=== PATIENT | female | born 1955 | race Two or more races ===

== ENCOUNTER 2022-06-24 13:39 | Outpatient (REF) | payer MEDICAID, SELFPAY ==
--- NOTE | ~2022-06-24 | MM_ITS ---
EXAMINATION: MM SCREENING DIGITAL BREAST TOMOSYNTHESIS, LEFT CLINICAL INFORMATION: Screening. Asymptomatic. Status post right mastectomy. COMPARISON: Mammography: February 06, 2020 and studies dating back to June 23, 2017 TECHNIQUE: Digital breast tomosynthesis is performed in both the craniocaudal and mediolateral oblique views along with computer-aided detection (CAD). Synthesized 2D images are generated from the tomosynthesis. FINDINGS: There are scattered areas of fibroglandular density (ACR BI-RADS breast composition Category b). There are no significant masses, abnormal calcifications, or other abnormalities. MM/MM tomosynthesis screening LT IMPRESSION: No significant changes ASSESSMENT: BI-RADS 1: Negative RECOMMENDATION: Routine annual mammography screening. This patient's information was entered into a reminder system with a target due date for their next mammogram.
== END 2022-06-24 13:40 | disposition home or self-care (01) ==
LOC: HO.MAMMO 13:39
PROVIDERS: Visit Provider Internal Medicine Medical Oncology
DX: Z12.31 Encounter for screening mammogram for malignant neoplasm of breast (principal)
CPT/HCPCS: 77063; 77067

== ENCOUNTER → 2023-07-09 14:00 | Outpatient (BNV) | payer MEDICAID, SELFPAY | PROVIDERS: Visit Provider Radiology Diagnostic Radiology | DX: Z12.31 Encounter for screening mammogram for malignant neoplasm of breast (principal) | CPT/HCPCS: 77063; 77067 ==

== ENCOUNTER 2023-07-09 14:07 | Outpatient (REF) | payer MEDICAID, SELFPAY ==
--- NOTE | ~2023-07-09 | MM_ITS ---
EXAMINATION: MM SCREENING DIGITAL BREAST TOMOSYNTHESIS, BILATERAL CLINICAL INFORMATION: Screening. Asymptomatic. The patient is status post left mastectomy. COMPARISON: Mammography: This study is compared with prior exams dating back to 2022. TECHNIQUE: Digital breast tomosynthesis is performed in both the craniocaudal and mediolateral oblique views along with computer-aided detection (CAD). Synthesized 2D images are generated from the tomosynthesis. FINDINGS: There are scattered areas of fibroglandular density (ACR BI-RADS breast composition Category b). There are no significant masses, abnormal calcifications, or other abnormalities. MM/MM tomosynthesis screening LT IMPRESSION: No mammographic evidence of malignancy. ASSESSMENT: BI-RADS BI-RADS 1 - Negative RECOMMENDATION: Routine annual mammography screening. 1 year F/U This examination should not preclude the clinical evaluation of a suspicious palpable abnormality. This patient's information was entered into a reminder system with a target due date for their next mammogram.
== END 2023-07-09 14:08 | disposition home or self-care (01) ==
LOC: HO.MAMMO 14:07
PROVIDERS: Visit Provider Internal Medicine Medical Oncology
DX: Z12.31 Encounter for screening mammogram for malignant neoplasm of breast (principal)
CPT/HCPCS: 77063; 77067

== ENCOUNTER 2024-07-14 14:00 | Outpatient (REF) | payer MEDICARE, MEDICAID, SELFPAY ==
--- NOTE | ~2024-07-14 | MM_ITS ---
EXAMINATION: MM SCREENING DIGITAL BREAST TOMOSYNTHESIS, LEFT CLINICAL INFORMATION: Screening. Asymptomatic. Patient states she has a left breast itchiness. COMPARISON: Mammography: This study is compared with prior exams dating back to TECHNIQUE: Digital breast tomosynthesis is performed in both the craniocaudal and mediolateral oblique views along with computer-aided detection (CAD). Synthesized 2D images are generated from the tomosynthesis. FINDINGS: There are scattered areas of fibroglandular density (ACR BI-RADS breast composition Category b). There are no significant masses, abnormal calcifications, or other abnormalities. MM/MM tomosynthesis screening LT IMPRESSION: No mammographic evidence of malignancy. ASSESSMENT: BI-RADS BI-RADS 1 - Negative RECOMMENDATION: Routine annual mammography screening. Patient states she has left breast/nipple itchiness. Recommend clinical evaluation and if there is a focal symptom or if deemed clinically significant a diagnostic workup can be ordered and performed. 1 year F/U This examination should not preclude the clinical evaluation of a suspicious palpable abnormality. This patient's information was entered into a reminder system with a target due date for their next mammogram. Electronically signed by: Yumiko Al DO 07/14/2024 03:04 PM RAND
--- OUTSIDE RECORDS SUMMARY | 2024-07-14 16:13 | XMS_ITS | Encounter Summary ---
Author Organization [facility] Address [address] [address] Care Team Providers Care Banking And Finance Instructor Name Role Phone Ev Stanton PA-C Primary Care Provider [phone] Reason for Visit * Reason Comments Behavioral Health Assessment Encounter Details Date Type Department Care Team ([facility] st Contact Info) Description 07/13/2024 10:00 AM EST / Vis[facility] [address] [place] [address] Enrike Gamez LCSW [address] [place] [address] Social History Tobacco Use Types Packs/Day Years Used Date Smoking Tobacco: Every Day Cigarettes Smokeless Tobacco: Never Alcohol Use Standard Drinks/Week Comments Not Currently 0 (1 standard drink = 0.6 oz pur e alcohol) Social Connections Answer Date Recorded Connectedness 0 01/21/2024 Financial Resource Strain Answer Date R ecorded Financial Resource Strain 1 2023 Stress Answer Date Recorded Stress 1 12/24/2023 Physical Activity Answer Date Recorded Physical Activity 0 06/06/2022 Food Insecurity Answer Date Recorded Food 1 12/24/2023 Transportation Needs Answer Date Record ed Transportation 1 12/24/2023 Housing Stability Answer Date Recorded Housing 1 12/24/2023 Safety and Environment Answer Date Jaylon rded Safety 0 06/06/2022 Utilities Answer Date Recorded Utilities 1 12/24/2023 Employment Answer Date Recorded Stress 0 12/24/2023 Comments No Sex and Gender Information Value Date Recorded Sex Assigned at Female 06/07/2022 7:59 PM PST Legal Sex Female 7:12 AM PST Gender Identity Female 06/07/2022 7:59 PM PST Sexual Orientation Straight 06/07/2022 7: 59 PM PST documented as of this encounter Plan of Treatment Upcoming Encounters Date Type Department Care Team (Late st Contact Info) Description 08/02/2024 3:45 PM EDT / Vis[facility] [address] [place] [id number] Enrike Gamez LCSW [address] [place] [address] documented as of this encounter Visit Diagnoses Not on filedocumented in this encounter Additional Health Concerns Assessment Noted Time PHQ-9 Depression Total Score: 2 12/24/19 24 10:02 AM PDT documented as of this encounter Care Teams Banking And Finance Instructor Relationship Specialty Start Date End Date Ev Stanton PA-C [address] [place] [address] PCP - General Internal Medicine 05/26/22 documented as of this encounter
--- OUTSIDE RECORDS SUMMARY | 2024-07-14 16:13 | XMS_ITS | Clinical Summary ---
Author Organization [facility] Address [address] [place] [address] Care Team Providers Care Egg Factory Worker Name Role Phone Jaleesa Castellanos MD Primary Care Provider Allergies Active Allergy Reactions Criticality Noted Date Comments Aspirin 11/29/2017 Medications VITAMIN D2 50,000 unit capsule 5,000 Units. 0 8 Active bisoprolol-hydr ochlorothiazide (ZIAC) 5-6.25 mg per tablet every 12 hours. Active meclizine (ANTIVERT) 25 mg tablet 9 Active cholecalciferol , vitamin D3, 125 mcg (5,000 unit) capsule 0 Active albuterol HFA 90 mcg/actuation inhaler Inhale 2 puffs every 6 (six) hours as needed. Active budesonide-form oteroL (SYMBICORT) 160-4.5 mcg/actuation inhaler Inhale 2 puffs 2 (two) times a day. Rinse mouth with water after use to reduce aftertaste and incidence of candidiasis. Do not swallow. Prime before first use and when inhaler has not been used for >5 days. Do not remove canister from the actuator. Active calcium carbonate (TUMS) 200 mg calcium (500 mg) chewable tablet Take by mouth daily. Active PriLOSEC OTC 20 mg EC tabletIndicatio ns:Gastroesopha geal reflux disease TAKE 1 TABLET (20 MG TOTAL) BY MOUTH DAILY. TAKE 30 MINS BEFORE BREAKFAST DAILY 28 tablet 2 0 Active anastrozole (ARIMIDEX) 1 mg chemo tablet 1 Active acetaminophen (TYLENOL) 325 mg tablet Take 975 mg by mouth every 6 hours as needed. 1 Active bisoproloL-hydr ochlorothiazide (ZIAC) 5-6.25 mg per tablet Take 1 tablet by mouth daily. 0 Active Active Problems Problem Noted Date Diagnosed Date Abnormal ultrasound of liver 02/10/2020 History of adenomatous polyp of colon 02/10/2020 Positive YOVANY (antinuclear antibody) 12/09/2019 Assessment & Plan (12/09/2019 10:37 AM EDT): Has low titer positive YOVANY likely in the setting of positive thyroid antibodies. No clinical evidence of specific connective tissue disease at this time. -We will continue to monitor clinically. -Advised to call if develops new symptoms. Cervical radiculopathy 12/09/2019 Assessment & Plan (12/09/2019 10:41 AM EDT): Has a history of C-spine injury status post surgery. Has progressively worsening neck pain associated with neuropathic symptoms more on the left upper extremity. -Would get C-spine x-ray today. -Administered IM depot Medrol 120 mg in clinic today to upper right lateral buttock region. Patient tolerated the procedure without complications. -Tylenol as needed. Consider referral for physical therapy after reviewing C- spine x-ray. Hematuria 12/09/2019 Assessment & Plan (12/09/2019 10:42 AM EDT): Noted mild hematuria 8-10 RBCs on last UA in May 2019. No protein or white blood cells. -Repeat UA today. Hypertension 07/19/2019 Vitamin D deficiency 07/19/2019 Skin lesion 07/19/2019 Asthma, allergic, mild intermittent, uncomplicat ed 07/19/2019 Headache 07/19/2019 Thrombocytopenia 07/19/2019 Cellulitis 07/19/2019 Dizziness 07/19/2019 History of Helicobacter pylori infection 020 Overview (07/19/2019): Added automatically from request for surgery [id number] Epigastric pain determined by examination 2019 Overview (07/19/2019): Added automatically from request for surgery [id number] Gastroesophageal reflux disease 07/19/2019 Overview (07/19/2019): Added automatically from request for surgery [id number] Screening for colon cancer 07/19/2019 Overview (07/19/2019): Added automatically from request for surgery [id number] Family history of colon cancer in mother 020 Overview (07/19/2019): Added automatically from request for surgery [id number] Lumbosacral spondylosis without myelopathy 10/17 Stenosis of cervical spine region 03/28/2015 Family History Medical History Relation Comments Cancer Mother Colon cancer Mother Hypertension Mother Esophageal cancer Neg Hx Stomach cancer Neg Hx Relation Status Comments Father Mother Social History Tobacco Use Types Packs/Day Years Used Date Smoking Tobacco: Some Days Cigarettes Smokeless Tobacco: Never Alcohol Use Standard Drinks/Week Comments No 0 (1 standard drink = 0.6 oz pur e alcohol) Comments No Sex and Gender Information Value Date Recorded Sex Assigned at Not on file Legal Sex Female 10:05 AM EST Gender Identity Not on file Sexual Orientation Not on file Last Filed Vital Signs Vital Sign Reading Time Taken Comments Blood Pressure 109/76 06/11/2021 11:39 AM EST Pulse 70 06/11/2021 11:39 AM EST Temperature 36.4 ??C (97.6 ??F) 06/11/2021 11:[address] Respiratory Rate 16 06/11/2021 11:39 AM EST Oxygen Saturation 96% 01/18/2020 2:40 PM EDT Inhaled Oxygen Concentration - - Weight 75.5 kg (166 lb 8 oz) 06/11/2021 11:39 AM EST Height 157.5 cm (5' 2 ) 06/11/2021 11:39 AM EST Body Mass Index 30.45 06/11/2021 11:39 AM EST Plan of Treatment Health Maintenance Due Date Last Done Comments CT Colonography 1955 FIT-DNA (Cologuard) 1955 FIT 1955 FOBT 1955 Flex Sigmoidoscopy - 5y 1955 DTaP,Tdap,and Td Vaccines (1 - Tdap) 1974 Zoster Vaccines (1 of 2) 2006 Pneumococcal Vaccine, 65+ Years (1 of 1 - PCV) 2021 Breast Cancer Screening 02/17/2023 02/18/20 21, 04/16/2020 COVID-19 Vaccine (1 - 2023-2 5 season) 2024 Influenza Vaccine (#1) 2024 Colonoscopy 01/17/2030 01/18/2020, 01/18/2020 Colorectal Cancer Screening 01/17/2030 HIV Screening Completed 06/08/2019 Bone Density Screening Completed 08/15/2020 HPV Vaccines Aged Out No longer eligi ble based on patient's age to complete this topic Hepatitis A Vaccines Aged Out No long er eligible based on patient's age to complete this topic Meningococcal Vaccine Aged Out No italo zee eligible based on patient's age to complete this topic Procedures Procedure Name Priority Date/Time Associated Diagnosis Comments COLONOSCOPY Routine 01/18/2020 1:27 PM EDT History of Helicobacter pylori infection HIV COMBO ANTIGEN/ANTIBODY Routine 06/08/2019 2:54 PM EST Polyarthralgia from Last 3 Months or Most Recently Relevant to Health Maintenance Results * COLONOSCOPY (01/18/2020 1:27 PM EDT) 01/18/2020 1:27 PM EDT Narrative [facility] - 01/18/2020 2:06 PM EDT Patient Name: Vijay Robles Date of : 1955 Procedure Date: 01/18/2020 1:27 PM Procedure: ? Colonoscopy Endoscopist: ? Heather Elias MD (Doctor) Referring MD: ?Nina Pulido (Referring MD) Indications: ? Screening for colorectal malignant neoplasm Attending Participation: I personally performed the entire procedure. Procedure: ? Pre-Anesthesia Assessment: ? - Prior to the procedure, a History and ? Physical was performed, and patient ? medications, allergies and sensitivities ? were reviewed. The patient's tolerance of ? previous anesthesia was reviewed. ? - The risks and benefits of the procedure ? and the sedation options and risks were ? discussed with the patient. All questions ? were answered and informed consent was ? obtained. ? - Patient identification and proposed ? procedure were verified prior to the ? procedure by the physician, the nurse, the ? carding utility tender and the pv design and installation technician. The ? procedure was verified in the pre-procedure ? area in the procedure room in the endoscopy ? suite. ? -Endoscopic procedures are exempt from a ? surgical site marking.Preparation: EKG, ? pulse, pulse oximetry, and blood pressure ? were monitored throughout the procedure. ? Capnography was monitored throughout ? procedure. The patient was kept NPO for ? four hours prior to the procedure. An ? intravenous line was inserted. The ? [id number] scope was introduced ? through the anus and advanced to the cecum, ? identified by appendiceal orifice and ? ileocecal valve. The colonoscopy was ? performed without difficulty. The patient ? tolerated the procedure well. The quality ? of the bowel preparation was adequate. Medicines: ? Propofol per Anesthesia Findings: ? Hemorrhoids were found on perianal exam. ? Diverticula were found in the colon. ? Three sessile polyps were found in the transverse colon. The ? polyps were 4 to 8 mm in size. These polyps were removed with a ? cold snare. Resection and retrieval were complete. ? The terminal ileum appeared normal. Estimated Blood Loss: ?Estimated blood loss: none. Unplanned Events: ?No immediate complications. Summary: ? - Hemorrhoids found on perianal exam. ? - Diverticulosis. ? - Three 4 to 8 mm polyps in the transverse ? colon, removed with a cold snare. Resected ? and retrieved. ? - The examined portion of the ileum was ? normal. Recommendation: ?- Written discharge instructions were ? provided to the patient. ? - The signs and symptoms of potential ? delayed complications were discussed with ? the patient. ? - Resume previous diet. ? - Await pathology results. ? - Repeat colonoscopy date to be determined ? after pending pathology results are ? reviewed for surveillance. ? - Return to referring physician. ? - Continue present medications. Procedure Code(s): ? --- Professional --- ? 02807, Colonoscopy, flexible; with removal ? of tumor(s), polyp(s), or other lesion(s) ? by snare technique Diagnosis Code(s): ? --- Professional --- ? Z12.11, Encounter for screening for ? malignant neoplasm of colon ? K64.9, Unspecified hemorrhoids ? D12.3, Benign neoplasm of transverse colon ? (hepatic flexure or splenic flexure) ? K57.30, Diverticulosis of large intestine ? without perforation or abscess without ? bleeding CPT copyright 2018 [employer]. All rights reserved. The codes documented in this report are preliminary and upon home care companion review may be revised to meet current compliance requirements. MD Heather Murray MD 01/18/2020 2:06:09 PM Electronically Authenticated and Edited by: Heather Elias MD Number of Addenda: 0 ? [place] [address] Tel: [phone] ? [phone] Heather Elias MD GI PROCEDURE Final Result Performing Organization Address City/State/[facility] Co de Phone Number [facility] [address] [place] [address]. [place] [address], * HIV combo antigen/antibody (06/08/2019 2:54 PM EST) HIV Combo AB/AG Negative Negative 06/08/2019 6:15 PM EST [facility] Blood specimen (specimen) Venous blood specimen / Unknown Venipuncture / Unknown 06/08/2019 2:54 PM EST 06/08/2019 2:54 PM EST Narrative [facility] - 06/08/2019 6:15 PM EST This test is a 4th generation HIV Antigen-Antibody Combination assay, using a chemiluminescent microparticle immunoassay, for the simultaneous qualitative detection of human immuno- deficiency virus (HIV) p24 antigen and antibodies to HIV type 1 (HIV-1) and/or HIV type 2 (HIV-2) in human serum or plasma. The [employer] HIV Ag/Ab Combo assay is intended to be used as an aid in the diagnosis of HIV-1 and/or HIV-2 infection, including acute or primary HIV-1 infection. Initially-positive tests are repeated in duplicate. Repeat-positive tests will be confirmed for HIV by a HIV-1/HIV-2 rapid supplemental/ differentiation antibody assay. This testing algorithm is in line with the current CDC recommendations. Leonides Raza MD LAB BLOOD ORDERABL ES NO STAT Final Result [facility] [address] [place] [address], from Last 3 Months or Most Recently Relevant to Health Maintenance Insurance MEDICAID [place] D Advance Directives For more information, please contact: [phone] Documents on File Type Date Recorded Patient Stationary Fireman Expl anation Advance Directives 01/19/2020 8:43 AM Care Teams Egg Factory Worker Relationship Specialty Start Date End Date Jaleesa Castellanos MD PCP - General 09/06/17
--- OUTSIDE RECORDS SUMMARY | 2024-07-14 16:13 | XMS_ITS | Encounter Summary ---
Author Organization [facility] Address [address] [place] [address] Care Team Providers Care Fiber Locking Supervisor Name Role Phone RajeshTobin garciaa CNDontrell Primary Care Provider [phone] Annette Saini RN Unavailable [phone] Unknown Primary Care Provider [phone] Nina Pulido Primary Care Provider [phone] Danyelle Caldera RN Unavailable [phone] Encounter Details Date Type Department Care Team (Latest Contact Info) Description 04/20/2020 Lab Requisition [facility] [address] [place] [address] [address] [place] [address] Colin Serrano PA-C [address] [place] [id number] Encounter for laboratory testing for COVID-19 virus Social History Tobacco Use Types Packs/Day Years Used Date Smoking Tobacco: Every Day Alcohol Use Standard Drinks/Week Comments Not Currently 0 (1 standard drink = 0.6 oz pur e alcohol) Sex and Gender Information Value Date Recorded Sex Assigned at Female 10/05/2022 2:35 PM EDT Gender Identity Female 10/05/2022 2:35 PM EDT Sexual Orientation Heterosexual (straight) 10/05 2:35 PM EDT COVID-19 Exposure Response Date Recorded In the last month, have you been in contact with someone who was confirmed or suspected to have Coronavirus / COVID-19? No / Unsure 04/16/2020 12:25 PM EST documented as of this encounter Plan of Treatment Not on file documented as of this encounter Procedures Procedure Name Priority Date/Time Associated Diagnosis Comments (REPORT) SARS COV-2 RNA (COVID-19), QUAL Routine 04/20/2020 4:23 PM EST Encounter for laboratory testing for COVID-19 virus [ICD-10-CM] documented in this encounter Results * SARS CoV-2 RNA (COVID-19), Qual (04/20/2020 4:23 PM EST) [facility] SARS CoV 2 RNA, Qual NOT DETECTED NOT DETECTED 04/24/2020 1:00 PM EST [facility] Comment: A Not Detected (negative) test result for this test means that SARS-CoV-2 RNA was not present in the specimen above the limit of detection. A negative result does not rule out the possibility of COVID-19 and should not be used as the sole basis for treatment or patient management decisions. If COVID-19 is still suspected, based on exposure history together with other clinical findings, re-testing should be considered in consultation with public health authorities. Laboratory test results should always be considered in the context of clinical observations and epidemiological data in making a final diagnosis and patient management decisions. REFERENCE RANGE: ??NOT DETECTED This patient specimen was tested using an FDA EUA pooling method. Negative results from pooled testing should not be treated as definitive. ??If the patient's clinical signs and symptoms are inconsistent with a negative result or results are necessary for patient management, then the patient should be considered for individual testing. Specimens with low viral loads may not be detected in sample pools due to the decreased sensitivity of pooled testing. Please review the Fact Sheets and FDA authorized labeling available for health care providers and patients using the following websites: https://www.[employer]Jiffy.com/home/Covid-19/HCP/QuestLDTP/ fact-sheet https://www.[employer]y.SHOP.COM/home/Covid-19/Patients/QuestLDTP/ fact-sheet.html This test has been authorized by the FDA under an Emergency Use Authorization (EUA) for use by authorized laboratories. Due to the current public health emergency, [facility] is receiving a high volume of samples from a wide variety of swabs and media for COVID-19 testing. In order to serve patients during this public health crisis, samples from appropriate clinical sources are being tested. Negative test results derived from specimens received in non-commercially manufactured viral collection and transport media, or in media and sample collection kits not yet authorized by FDA for COVID-19 testing should be cautiously evaluated and the patient potentially subjected to extra precautions such as additional clinical monitoring, including collection of an additional specimen. Methodology: ??Nucleic Acid Amplification Test (NAAT) includes RT-PCR or TMA ?? Additional information about COVID-19 can be found at the [facility] website: www.Caktus/Covid19. Microbiology Nasopharyngeal swab / Unknown 04/20/2020 4:23 PM EST 04/20/2020 4:23 PM EST Narrative [facility] - 04/24/2020 1:00 PM EST Performing Organization Information: ?Site ID: [id number] ?Name: [employer] ?Address: [address] [place] [address],[place] [address] ?Director: BUNNY FOSTER MD [facility]formed at [facility] License number [id number] Colin Serrano PA-C BODY FLUIDS AND S TOOLS ORDERABLES Performing Organization Address City/State/[facility] Co de Phone Number [facility] documented in this encounter Visit Diagnoses Diagnosis Encounter for laboratory testing for COVID-19 virus documented in this encounter Care Teams Fiber Locking Supervisor Relationship Specialty Start Date End Date Ava Swan CNM [address] [place] [address] PCP - General Midwifery 02/20/20 06/03/20 Unknown Unknow Provider Address PCP - General 06/04/20 06/27/20 Nina Pulido PA [address] [place] [id number] PCP - General Adult Health - PA/APNP/SUPERVISOR WEBBING/KILN BURNER 06/28/20 Annette Saini RN [address] [place] [address] Oncology Nurse Navigator 02/27/20 02/14/21 Danyelle Caldera RN [address] [place] [address] Oncology Nurse Navigator 08/18/21 documented as of this encounter
--- OUTSIDE RECORDS SUMMARY | 2024-07-14 16:13 | XMS_ITS | Patient Health Record ---
Author Organization [employer] Address [address] [facility] [id number] [place] [address] Care Team Providers Care Press Service Reader Name Role Phone Nina Pulido Primary Care Provider [phone] ALLERGIES Allergen (clinical drug ingredient) Drug/Non Drug Allergy documented on EMR Reaction Allergy Type Onset Date Status aspirin Aspirin Unknown Drug Allergy Active REASON FOR REFERRAL No Information MEDICATIONS Medication SIG (Take, Route, Frequency, Duration) Notes Start Date End Date Status Peridex 0.12 % as directed Mouth/Th roat 2x daily for 21 days 04/03/2022 Active Ibuprofen 800 MG 1 tablet with food o r milk as needed Orally every 8 hrs for 7 days 10/08/2021 Not-Takin g Peridex 0.12 % as directed Mouth/Th roat twice a day for 21 days 10/28/2021 Not-Taki ng Amoxicillin 500 MG 1 capsule Orally arya ry 8 hrs for 10 days 07/24/2020 Not-Taking Diclofenac Sodium 1 % APPLY 3 GRAMS TO K NEE TWICE A DAY 17 for 17 Active [facility] Diclofenac Sodium 1 % DIRECTED EXTERNALLY 30 DAYS for 30 Not-Taking [facility] D3 125 MCG (5000 UT) TAKE 1 CAPSULE BY MOUTH EVERY DAY for 30 Active Acetaminophen 500 MG 1 tablet as needed Orally every 6 hrs for 7 days 10/03/2021 Not-Taking Albuterol Sulfate HFA 108 (90 Base) MCG/ACT INHALE 2 PUFFS BY MOUTH EVERY 6 HOURS NEEDED for 17 Not-Taking traMADol HCl 50 MG 1 tablet as needed, may cause drowsiness Orally every 6 hours as needed for 5 days 02/20/2022 Active Amoxicillin 500 MG 1 capsule Orally arya ry 8 hrs for 7 days 07/23/2021 Not-Taking Anastrozole 1 MG 1 tablet Orally Once a day Active Methocarbamol 750 MG 1 tablet Orally arya ry 4 hrs for 4 days 07/21/2021 Not-Taking Blood Pressure Monitor Automat miscellaneous as directed Externally 2 times a day for [address] days 07/05/2018 Active Hepatitis B Vac Recombinant 20 MCG/ML as directed Intramuscular once for 1 days Not-Taking Blood Pressure Kit - 1 externally daily for 999 days 05/12/2019 Active Amoxicillin 500 MG 1 tablet Orally Thre e times a day for 7 day(s) 10/03/2021 Not-Sanjiv ing Omeprazole 40 MG 1 capsule 30 minutes before morning meal Orally Once a day Active Peridex 0.12 % as directed Mouth/Th roat bid for 7 days 10/04/2021 Not-Taking Tylenol 8 Hour 650 MG 2 tablets as neede d Orally every 8 hrs for 7 days 10/04/2021 Not-Taking Symbicort 160-4.5 MCG/ACT 2 puffs Inhalation Twice a day Not-Taking Meclizine HCl 25 MG 1 tablet as needed Orally Twice a day for 30 day(s) 05/12/2019 Not-Taking Bisoprolol-hydroCHLOROth iazide 5-6.25 MG TAKE 1 TABLET BY MOUTH TWICE A DAY FOR 30 DAYS for 90 days Active SOCIAL HISTORY Tobacco Use: Social History Observation Description Date Details (start date - stop date) Current Smoker NA - NA Sex Assigned At : Social History Observation Description Sex Assigned At Unknown Tobacco Use/Smoking Question Answer Notes Are you a current smoker How often do you smoke cigarettes? some days, bu t not every day How many cigarettes a day do you smoke? 5 or les s Alcohol Screen Question Answer Notes Did you have a drink containing alcohol in the p ast year? No Points 0 Interpretation Negative Sexual History Question Answer Notes Had sex in the past 12 months (vaginal, oral, or anal)? No Have you ever had a Sexually transmitted disease ? No Drug and Alcohol Question Answer Notes Total Score: 0 Interpretation: No problems reported DAST-10 (2020 Edition) Question Answer Notes 1. Have you used drugs other than those required for medical reasons? No 2. Do you abuse more than one drug at a time? No 3. Are you always able to stop using drugs when you want to? No 4. Have you had blackouts or flashbacks as a result of drug use? No 5. Do you ever feel bad or guilty about your lorrie g use? No 6. Does your spouse (or pare nts) ever complain about your involvement with drugs? No 7. Have you neglected your family because of you r use of drugs? No 8. Have you engaged in illegal activities in ord er to obtain drugs? No 9. Have you ever experienced withdrawal symptoms (felt sick) when you stopped taking drugs? No 10. Have you had medical pro blems as a result of your drug use (e.g., memory loss, hepatitis, convulsions, bleeding etc.)? 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) Active confirmed Complete edentulism class I due to caries (disorder) (7129056863095655) Problem Complete loss of teeth due to caries, unspecified class (K08.139) Active confirmed Complete edentulism due to caries (0033993249865321) Problem Lumbago with sciatica, right side (M54.41) Active confirmed 866720631 Problem Cough (R05) Active confirmed 93481905 Problem Hypertension (I10) Active confirmed 91856004 Problem Vitamin D deficiency (E55.9) Active confirmed 60982394 Problem Memory loss (R41.3) Active confirmed Memory loss (73799122) Problem Skin lesion (L98.9) Active confirmed 99832351 Problem Essential hypertension (I10) Active confirmed 65048075 Problem Apical periodontitis (K04.5) Active confirmed Apical periodontitis (94840698) Problem Lower respiratory infection (J22) Active confirmed 83312854 Problem Abnormal laboratory test (R89.9) Active confirmed Laboratory test result abnormal (268910286) Problem Mild intermittent asthma without complication (J45.20) Active confirmed 953908314 Problem Osteoarthritis of left knee (M17.12) Active confirmed Osteoarthritis of knee (746510205) Problem Acute midline low back pain with right-sided sciatica (M54.41) Active confirmed 555161612 Problem Hypertension, unspecified type (I10) Active confirmed 40960185 Problem Arthritis of knee, left (M17.12) Active confirmed 0043779032446466 Problem Caries involving multiple surfaces of tooth (K02.9) Active confirmed Caries invo lving multiple surfaces of tooth (665689474) Problem Mild intermittent asthma, unspecified whether complicated (J45.20) Active confirmed 841313398 Problem Complete loss of teeth (K08.109) Active confirmed Loss of teet h (disorder) (07055320) Problem Worsening vision (H54.7) Active confirmed PLAN OF TREATMENT Pending Test Test Name Order Date diagnostic unilateral Right mammo, 02/05 Mammogram, left breast 08/02/2019 MAMMOGRAM, SCREENING 03/23/2022 MAMMOGRAM, SCREENING 07/04/2018 ANACHOICE(R) SPECIFIC AB CASCADING REFLE X 10/04/2014 Stereotactic Biopsy 02/07/2020 Stereotactic Biopsy 02/19/2020 Insurance Providers Payer Name Payer Address Payer Phone Subscriber Number Group Number Insured Name Patient Relationship to Insured Coverage Start Date Coverage End Date MEDICAID DENTAL KIM [address] [place] [address] [id number] Vijay Robles Self - patient is the insured HUSKY D [address] [place] [address] [id number] Vijay Robles Self - patient is the insured MEDICAL (GENERAL) HISTORY Medical History History ICD Code hypertension Surgical History Surgery Date(Month/Year) cervical spine surgery 03/2013 Hospitalization History Reason Date(Month/Year) surgery 03/2013
--- OUTSIDE RECORDS SUMMARY | 2024-07-14 16:13 | XMS_ITS ---
Author Organization [facility] Address [address] [place] [address] Care Team Providers Care Freight Solicitor Name Role Phone Nina Pulido Primary Care Provider Danyelle Caldera RN Unavailable [phone] Active Problems Problem Noted Date Diagnosed Date Hx of malignant neoplasm of breast 08/29/2021 Smoker 07/04/2020 Hypertension 06/28/2020 Current Oncology Plans No current plan information found. Past Plans No past plan information found. Radiation Treatments * No radiation treatments are documented for this patient in [facility]. Treatments may have been administered in another system. Lifetime Dose Tracking * Chemical Lifetime Dose Automatic Entry Manual Entr y Radiation Resolved Problems Problem Noted Date Diagnosed Date Resolved Date Breast cancer 06/04/2020 08/29/2021 Malignant neoplasm of upper- inner quadrant of right breast in female, estrogen receptor positive 03/22/2020 08/29/2021
--- OUTSIDE RECORDS SUMMARY | 2024-07-14 16:13 | XMS_ITS | Encounter Summary ---
Author Organization [facility] Address [address] [place] [address] Care Team Providers Care Cardiothoracic Surgeon Name Role Phone Tess Nina DRIVER Primary Care Provider Danyelle Caldera RN Unavailable [phone] Encounter Details Date Type Department Care Team (Late st Contact Info) Description 02/12/2022 Scanned Document [facility] at [address] [phone] Provider, Saulo, [address] [place] [address] Social History Tobacco Use Types Packs/Day Years Used Date Smoking Tobacco: Every Day Cigarettes Smokeless Tobacco: Never Comments:smoking for 30 year s cut down from 1 pack to 0.5 pack Alcohol Use Standard Drinks/Week Comments Never 0 (1 standard drink = 0.6 oz pur e alcohol) AUDIT-C Answer Date Recorded Q1: How often do you have a drink containing alc ohol? Never 06/28/2020 Q2: How many drinks containi ng alcohol do you have on a typical day when you are drinking? Not asked 06/28/2020 Q3: How often do you have six or more drinks on one occasion? Never 06/28/2020 Sex and Gender Information Value Date Recorded Sex Assigned at Female 10/05/2022 2:35 PM EDT Gender Identity Female 10/05/2022 2:35 PM EDT Sexual Orientation Heterosexual (straight) 10/05 2:35 PM EDT documented as of this encounter Plan of Treatment Not on file documented as of this encounter Visit Diagnoses Not on filedocumented in this encounter Care Teams Cardiothoracic Surgeon Relationship Specialty Start Date End Date Nina Pulido PA [address] [place] [address] PCP - General Adult Health - VILLA/PAKO/TERRITORY MANAGER/LEAF SORTER 06/28/20 Danyelle Caldera RN [address] [place] [address] Oncology Nurse Navigator 08/18/21 documented as of this encounter
--- OUTSIDE RECORDS SUMMARY | 2024-07-14 16:13 | XMS_ITS | Encounter Summary ---
Author Organization [facility] Address [address] [place] [address] Care Team Providers Care Aerotriangulation Specialist Name Role Phone Ava Swan CNM Primary Care Provider [phone] Annette Saini RN Unavailable [phone] Unknown Primary Care Provider [phone] Nina Pulido Primary Care Provider [phone] Danyelle Caldera RN Unavailable [phone] Encounter Details Date Type Department Care Team (Late st Contact Info) Description 03/01/2020 Scanned Document [facility] Surgical Oncology [place] [address] [facility] [address] [place] [phone] Anthony Cox MD [address] [facility] [address] [place], [place] [id number] Social History Tobacco Use Types Packs/Day Years [...] have Coronavirus / COVID-19? No / Unsure 03/01/2020 10:21 AM EDT documented as of this encounter Plan of Treatment Not on file documented as of this encounter Visit Diagnoses Not on filedocumented in this encounter Care Teams Aerotriangulation Specialist Relationship Specialty Start Date End Date Ava Swan CNM [address] [place] [address] PCP - General Midwifery 02/20/20 06/03/20 Unknown Unknow Provider Address PCP - General 06/04/20 06/27/20 Nina Pulido PA [address] [place] [address] PCP - General Adult Health - PA/APNP/TEST PILOT/TAPING FOREMAN 06/28/20 Annette Saini, PETEY [address] [place] [address] Oncology Nurse Navigator 02/27/20 02/14/21 Danyelle Caldera RN [address] [place] [address] Oncology Nurse Navigator 08/18/21 documented as of this encounter
--- OUTSIDE RECORDS SUMMARY | 2024-07-14 16:13 | XMS_ITS | Encounter Summary ---
Author Organization [facility] Address [address] [place] [address] Care Team Providers Care Financial Administration Officer Name Role Phone RajeshTobin garciaa CNM Primary Care Provider [phone] Annette Saini RN Unavailable [phone] Unknown Primary Care Provider [phone] Nina Pulido Primary Care Provider [phone] Danylele Caldera RN Unavailable [phone] Encounter Details Date Type Department Care Team (Late st Contact Info) Description 05/30/2020 Lab Requisition [place] COVID-19 Testing [place] [address] [place] [address] Anthony Cox MD [address] [place] [address] Encounter for laboratory testing for COVID-19 virus Social History Tobacco Use Types Packs/Day Years Used Date Smoking Tobacco: Every Day Smokeless Tobacco: Never Alcohol Use Standard Drinks/Week [...] have Coronavirus / COVID-19? No / Unsure 05/22/2020 3:07 PM EST documented as of this encounter Plan of Treatment Not on file documented as of this encounter Procedures Procedure Name Priority Date/Time Associated Diagnosis Comments COVID-19 RT-PCR ([facility]) Routine 05/30/2020 10:14 AM EST Encounter for laboratory testing for COVID-19 virus [ICD-10-CM] documented in this encounter Results * COVID-19 RT-PCR ([facility]) (05/30/2020 10:14 AM EST) COVID-19 RT-PCR SARS-COV-2 NOT DETECTED Not Detected 05/31/2020 7:07 AM EST [employer] Comment: ADDITIONAL INFORMATION The [facility] COVID-19 RT-PCR Assay is Real-Time Reverse Edge Stitcher Polymerase Chain Reaction (track inspector-PCR) for the in vitro qualitative detection of three SARS-Cov-2 target sequences unique to the coronavirus disease 2019 (COVID-19). This is an Emergency Use Authorization (EUA) in vitro diagnostic (IVD) test that has been modified to include the IntelGenX automated liquid handler. Its analytical performance characteristics have been determined by the director of patient care and verified by [facility] in a manner consistent with CLIA requirements. This test may be used for clinical purposes and should not be regarded as purely investigational or for research use only. This laboratory is certified under the Clinical Laboratory Improvement Amendments of 1988 (CLIA) as qualified to perform high complexity clinical testing. Reference interval for this testing is SARS-CoV-2 Not Detected. Fact sheets for this Emergency Use Authorization assay can be found at the following links: For Healthcare Providers: https://www.fda.gov/media/058426/download For Patients: https://www.fda.gov/media/494659/download TEST LIMITATIONS Positive results are indicative of the presence of SARS-CoV-2 RNA; clinical correlation with patient history and other diagnostic information is necessary to determine patient infection status. Positive results do not rule out bacterial infection or co-infection with other viruses. The agent detected may not be the definite cause of disease. Negative results do not exclude SARS-CoV-2 infection and should not be used as the sole basis for patient management decisions. Negative results must be combined with clinical observations, patient history, and epidemiological information. Improper sample collection, transport or storage may impede the ability of the assay to detect target sequences. Inconclusive specimens are not repeated, and recollection and submission of a new sample is recommended. The performance of the TaqPath COVID-19 Combo Kit was established using nasopharyngeal swab, nasopharyngeal aspirate, and bronchoalveolar lavage (BAL) specimens. The limit of detection for the assay was determined to be 0.75copies/uL in the specimens of nasopharyngeal swab. Other specimen types may be need for further validation before testing on this system. For further details refer to the [employer] TaqPath COVID-19 Combo Kit EUA submission (https://www.[employer].gov/media/962710/download). ----- Test performed by [facility], [address] [place] [address] CLIA# [id number] ?[id number] ? Shaheed West M.D., Ph.D., ABMGG, Clinical Plant Packer Microbiology Nasopharyngeal swab / Unknown 05/30/2020 10:14 AM EST 05/30/2020 10:14 AM EST Narrative [facility] - 05/31/2020 7:07 AM EST Performed at [facility], [address] [place] [address], [place] Lic 0695, CLIA [id number] Anthony Cox MD MICROBIOLOGY - GENE RAL ORDERABLES [address] [place] [address] documented in this encounter Visit Diagnoses Diagnosis Encounter for laboratory testing for COVID-19 virus documented in this encounter Care Teams Financial Administration Officer Relationship Specialty Start Date End Date Ava Swan CNM [address] [place] [address] PCP - General Midwifery 02/20/20 06/03/20 Unknown Unknow Provider Address PCP - General 06/04/20 06/27/20 Nina Pulido PA [address] [place] [address] PCP - General Adult Health - PA/PAKO/YARD JACKER/PULVERIZING AND SIFTING OPERATOR 06/28/20 Annette Saini, PETEY [address] [place] [address] Oncology Nurse Navigator 02/27/20 02/14/21 Danyelle Caldera, RN [address] [place] [address] Oncology Nurse Navigator 08/18/21 documented as of this encounter
--- OUTSIDE RECORDS SUMMARY | 2024-07-14 16:13 | XMS_ITS ---
Author Name [facility] Organization Unknown History of Medication Use Medication Directions Dispensed Refills Start Date End Date Stat docusate sodium (COLACE) 100 MG capsule Take 1 capsule (100 mg total) by mouth 2 (two) times a day as needed for constipation. To prevent constipation while taking narcotic pain medications. HOLD if loose stools 06/06/2020 active anastrozole (ARIMIDEX) 1 MG tablet Take 1 tablet (1 mg total) by mouth daily 09/30/2021 active apixaban (ELIQUIS) 5 MG tablet Take 1 tablet (5 mg total) by mouth 2 (two) times a day. 04/14/2022 active [facility] D3 125 MCG (5000 UT) capsule Take by mouth daily. 03/12/2020 act lito bisoprolol-hydrochlo rothiazide (ZIAC) 5-6.25 MG per tablet Take 1 tablet by mouth daily. 01/29/2020 active albuterol (PROVENTIL HFA; VENTOLIN HFA) 108 (90 Base) MCG/ACT inhaler Inhale 2 puffs 4 times daily (every 6 hours) as needed. 03/17/2020 active Problems Problem Status Onset Date Problem Type Date of Resoluti on Source GERD (gastroesophageal reflux disease) active EncounterDiagnosisAct [facility] [place] Hypertension active 2020-06-28 ProblemAct [facility] Malignant neoplasm of upper-inner quadrant of right breast in female, estrogen receptor positive (HCC) active EncounterDiagnosisAct [facility] Hx of malignant neoplasm of breast active 2021-08-29 ProblemAct [facility] Lung nodule active EncounterDiagnosisAct [facility] Smoker active 2020-07-04 ProblemAct [facility] Immunizations Vaccine Date Source Lot Number Status Influenza Inactivated/Split Preservative Free IM 06/04/2020 [facility] completed
--- OUTSIDE RECORDS SUMMARY | 2024-07-14 16:13 | XMS_ITS ---
Author Organization [facility] Address [address] [address] Care Team Providers Care Pickle Sorter Name Role Phone KEVIN FAUST Primary Care Provider REASON FOR VISIT new patient Encounters Encounter Location Date Provider Diagnosis [facility] [address] [facility] [address] [place] [address] 05/24/2024 KEVIN FAUST Plan Of Treatment Next Appt Details Provider Name:KEVIN FAUST , 07/17/2024 02:00:00 PM, [address] [facility] [address], [place], [address], Progress Notes * Vijay HORNDOB: (69 yo F)Acc No.[id number]:05/24/2024 Progress Notes Patient:?Vijay HORN Provider:?KEVIN FAUST MD :[id number]???Age:69 Y???Sex:Female D ate:05/24/2024 Phone: Address:[address] [place], [place] [phone] Subjective: * Chief Complaints: * ???1. New patient. * Medical History:? Objective: * Vitals:? Assessment: Plan: * Treatment: * Procedure Codes:?NOSHO NO SH OW FEE * * Electronic signature of SHANTI FAUST MD on 07/14/2024 at 04:13 PM EST Sign off status: Pending * Provider:?KEVIN FAUST MD Date:?05/24 Generated for Sigrid carney/Shazia/eTransmitting on:?07/14/2024 04:13 PM EST
--- OUTSIDE RECORDS SUMMARY | 2024-07-14 16:13 | XMS_ITS | Clinical Summary ---
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 03/17/2020 Active bisoprolol-hydroch lorothiazide (ZIAC) 5-6.25 MG per tablet Take 1 tablet by mouth daily. 01/29/2020 Active [facility] D3 125 MCG (5000 UT) capsule Take by mouth daily. 03/12/2020 Active acetaminophen (TYLENOL) 325 MG tabletIndications: S/P mastectomy, right Take 3 tablets (975 mg total) by mouth 4 times daily (every 6 hours) as needed for mild pain or moderate pain. 30 tablet 06/06/2020 Active docusate sodium (COLACE) 100 MG capsuleIndications :S/P mastectomy, right Take 1 capsule (100 mg total) by mouth 2 (two) times a day as needed for constipation. To prevent constipation while taking narcotic pain medications. HOLD if loose stools 60 capsule 06/06/2020 Active gabapentin (NEURONTIN) 300 MG capsuleIndications :Malignant neoplasm of upper-inner quadrant of right breast in female, estrogen receptor positive (HCC) Take 1 capsule (300 mg total) by mouth 3 (three) times a day. 21 capsule 06/10/2020 Active oxyCODONE (Roxicodone) 5 MG immediate release tabletIndications: Malignant neoplasm of upper-inner quadrant of right breast in female, estrogen receptor positive (HCC) Take 1 tablet (5 mg total) by mouth 3 times daily (every 8 hours) as needed for severe pain. Max Daily Amount: 15 mg 4 tablet 06/24/2020 Active anastrozole (ARIMIDEX) 1 MG tabletIndications: Malignant neoplasm of upper-inner quadrant of right breast in female, estrogen receptor positive (HCC),Lung nodule,Breast cancer (HCC),Monoallelic mutation of APC gene,Tobacco abuse Take 1 tablet (1 mg total) by mouth daily 90 tablet 1 09/30/2021 Active apixaban (ELIQUIS) 5 MG tabletIndications: Malignant neoplasm of upper-inner quadrant of right breast in female, estrogen receptor positive (HCC),Pulmonary emboli (HCC) Take 1 tablet (5 mg total) by mouth 2 (two) times a day. 60 tablet 5 04/14/2022 Active anastrozole (ARIMIDEX) 1 MG tabletIndications: Hx of malignant neoplasm of breast Take 1 tablet (1 mg total) by mouth daily 90 tablet 06/02/2022 Active OMEprazole (PriLOSEC) 40 MG capsuleIndications :Malignant neoplasm of upper-inner quadrant of right breast in female, estrogen receptor positive (HCC),Lung nodule,GERD (gastroesophageal reflux disease) TAKE 1 CAPSULE BY MOUTH EVERY DAY 30 capsule 1 03/25/2023 Active Active Problems Problem Noted Date Diagnosed Date Hx of malignant neoplasm of breast 08/29/2021 Smoker 07/04/2020 Hypertension 06/28/2020 Resolved Problems Problem Noted Date Diagnosed Date Resolved Date Breast cancer 06/04/2020 08/29/2021 Malignant neoplasm of upper- inner quadrant of right breast in female, estrogen receptor positive 03/22/2020 08/29/2021 Immunizations Name Administration Dates Next Due Influenza Inactivated/Split Preservative Free IM 06/04/2020() Family History Medical History Relation Name Comments Cancer, other Brother blood cancer per patient Skin cancer Daughter 1 Colon cancer Mother Hypertension Mother Cancer, other Niece metastatic can cer, no details Cancer, other Sister 1 gallbladder c ancer per patient Cancer, other Sister 2 gallbladder c ancer per patient Relation Name Status Comments Brother (Age 55) Daughter 1 Alive Daughter 2 Alive Daughter 3 Alive Daughter 4 Alive Father Mother (Age 65) Niece (Age 36) Sister 1 (Age 65) Sister 2 (Age 22) Son 1 Alive Son 2 Alive Son 3 Alive Son 4 Alive Social History Tobacco Use Types Packs/Day Years [...] Orientation Heterosexual (straight) 10/05 2:35 PM EDT Last Filed Vital Signs Vital Sign Reading Time Taken Comments Blood Pressure 111/63 04/14/2022 3:51 PM EST Pulse 72 04/14/2022 3:51 PM EST Temperature 36.2 ??C (97.2 ??F) 04/14/2022 3:51 PM ES T Respiratory Rate 18 04/14/2022 3:51 PM EST Oxygen Saturation 99% 04/14/2022 3:51 PM EST Inhaled Oxygen Concentration - - Weight 70.9 kg (156 lb 6.4 oz) 04/14/2022 3:51 PM EST Height 152.4 cm (5') 06/28/2020 1:32 PM EST Body Mass Index 30.54 06/28/2020 1:32 PM EST Plan of Treatment Health Maintenance Due Date Last Done Comments DTaP/Tdap/Td Vaccines (1 - Tdap) 1975 Pneumococcal Vaccines 50+ (1 of 2 - PCV) 1975 Colonoscopy 2001 Zoster (Shingles) Vaccine (1 of 2) 2006 RSV Vaccine 60 years and older and Patients (1 - Risk 60-74 years 1-dose series) 2016 DXA Bone Density (Females,Ages 65 and older) 08/15/2022 08/15/2020 Mammogram 02/17/2023 02/17/2021, 11/0 07/2019, 07/31/2019, Additional history exists Influenza Vaccine 12/16/2023 COVID-19 Vaccine ( season) 2024 HIV Screening Discontinued 08/18/2021 Hepatitis C Virus Screening Completed 08/18/2021 Hepatitis B Vaccines Aged Out No long er eligible based on patient's age to complete this topic Procedures Procedure Name Priority Date/Time Associated Diagnosis Comments HIV 1/2 AG/AB CMIA REFLEX TO CONFIRMATION STAT 08/18/2021 3:55 PM EDT Malignant neoplasm of upper-inner quadrant of right breast in female, estrogen receptor positive (HCC) Breast cancer (HCC) HEPATITIS PANEL, ACUTE STAT 08/18/2021 3:55 PM EDT Malignant neoplasm of upper-inner quadrant of right breast in female, estrogen receptor positive (HCC) Breast cancer (HCC) MM MAMMO SCREENING W/ TOMOSYNTHESIS-LEFT Routine 02/17/2021 1:12 PM EDT Breast cancer (HCC) Monoallelic mutation of APC gene Tobacco abuse DEXA BONE DENSITY HIP/SPINE/PELVIS Routine 08/15/2020 2:00 PM EDT Breast cancer (HCC) from Last 3 Months or Most Recently Relevant to Health Maintenance Results * HIV 1/2 Ag/Ab CMIA Reflex to Confirmation ([facility], [facility], [facility]) (08/18/2021 3:55 PM EDT) HIV 1/2 Ag/Ab CMIA Nonreactive Nonreactive 08/19/2021 11:09 AM EDT [facility] Comment:Results show no evid ence of infection by HIV 1/2. If clinically indicated, repeat CMIA or test by nucleic acid amplification. Blood specimen (specimen) Serum specimen / Unknown 08/18/2021 3:55 PM EDT 08/18/2021 4:46 PM EDT Lillian Parker MD LAB BLOOD ORDERABLES Performing Organization Address [facility] de Phone Number [facility] [employer] [facility] [address] [place] [address] * Hepatitis Panel, Acute (08/18/2021 3:55 PM EDT) Hepatitis A Antibody IgM Nonreactive Nonreactive S/CO 08/19/2021 11:09 AM EDT [facility] Hepatitis B Core Antibody IgM Nonreactive Nonreactive 08/19/2021 11:09 AM EDT [facility] Hepatitis B Surface Ag Screen Nonreactive Nonreactive 08/19/2021 11:09 AM EDT [employer] [facility] Hepatitis C Antibody 0.34 0.00 - 0.79 S/CO ratio 08/19/2021 11:09 AM EDT [facility] Hepatitis C Antibody Interpretation Nonreactive Nonreactive 08/19/2021 11:09 AM EDT [facility] Hepatitis Interpretation: Results inconsistent with acute Hepatitis A, B or C Virus infection. 08/19/2021 11:09 AM EDT [facility] Blood specimen (specimen) Serum specimen / Unknown 08/18/2021 3:55 PM EDT 08/18/2021 4:46 PM EDT Lillian Parker MD LAB BLOOD ORDERABLES Performing Organization Address [facility] de Phone Number [facility] [employer] [facility] [address] [place] [address] * MM Breast tomosynthesis screening-Left (02/17/2021 1:12 PM EDT) Anatomical Region Laterality Modality Breast Left Mammography 02/17/2021 1:13 PM EDT Impressions 02/18/2021 1:31 PM EDT There is no mammographic evidence of malignancy. OVERALL ASSESSMENT: BI-RADS 1 - Negative RECOMMENDATION: Routine screening mammography recommended in 1 year The patient will receive a lay summary of the results of this breast imaging exam. Lay summaries for mammography examinations will also identify the patient's personal breast tissue composition as required by state law. If the patient has a finding requiring further evaluation, our facility will contact the patient to arrange additional imaging. Narrative 02/18/2021 1:31 PM EDT EXAMINATION: MM SCREENING WITH TOMOSYNTHESIS, LEFT CLINICAL INFORMATION: Routine annual screening mammography. Personal history of right breast carcinoma, status post mastectomy. COMPARISON: 07/31/2019 TECHNIQUE: Examination was performed using full breast technique. Synthesized views of the Left breast were obtained in standard projections. Tomosynthesis images of the breast were obtained and displayed at 1 mm increments. Computer-aided detection was utilized by the radiologist in the interpretation of this exam. FINDINGS: There are scattered areas of fibroglandular density. (ACR BI-RADS breast composition Category b)* There are no suspicious masses, grouped calcifications or architectural distortion. There has been no interval change. Lillian Parker MD IMG MAMMOGRAPHY [facility] * MM Dexa Bone Density ([place]) (08/15/2020 2:00 PM EDT) Anatomical Region Laterality Modality Mammography 08/15/2020 2:00 PM EDT Impressions 08/16/2020 1:09 PM EDT 1. DIAGNOSIS: Osteopenia based on the lowest T-score value of -1.6 in the lumbar spine applying World Health Organization criteria. ?? 2. 10-YEAR FRACTURE RISK PREDICTION, FRAX: Major osteoporotic fracture (clinical spine, forearm, hip or shoulder) 4.5%. Hip fracture 0.7%. 3. Treatment Recommendations: NOF guidelines recommend consideration for treatment in postmenopausal women and men age 50 and older presenting with the following: -A hip or vertebral (clinical or morphometric) fracture. -T-score less than or equal to -2.5 at the femoral neck or spine after appropriate evaluation to exclude secondary causes. -Low bone mass at the hip or spine and a 10-year fracture probability by FRAX of greater than or equal to 3% for hip fracture or greater than or equal to 20% for major osteoporotic fracture based on the [place] adapted WHO algorithm. 4. Other Recommendations: All treatment decisions require clinical judgment and consideration of individual patient factors, including patient preferences, comorbidities, previous drug use, risk factors not captured in the FRAX model (e.g. frailty, falls, vitamin D deficiency, increased bone turnover, interval significant decline in bone density) and possible under or overestimation of fracture risk by FRAX. Additional medical evaluation for secondary cause of low bone mineral density may be appropriate. FUTURE SCAN RECOMMENDATION: People with diagnosed cases of osteoporosis or at high risk for fracture should have regular bone mineral density tests. For patients eligible for Medicare, routine testing is allowed once every 2 years. The testing frequency can be increased to one year for patients who have rapidly progressing disease, those who are receiving or discontinuing medical therapy to restore bone mass, or have additional risk factors. Narrative 08/16/2020 1:09 PM EDT EXAMINATION: BONE DENSITOMETRY CLINICAL INDICATION: Baseline prior to starting aromatase inhibitor. COMPARISON: This is the patient's baseline examination. TECHNIQUE: Using a [employer]ical DXA System (software version: 13.60) manufactured by [employer], dual-energy x-ray absorptiometry was performed of the lumbar spine and left hip. The images are of good technical quality. Summary results are attached. FINDINGS: AP SPINE L1-L4: BMD 0.984 g/cm2, Z-score -0.4, T-score -1.6, osteopenia. LEFT FEMUR, NECK: BMD 0.848 g/cm2, Z-score -0.1, T-score -1.4, osteopenia. LEFT FEMUR, TOTAL: BMD 0.934 g/cm2, Z-score 0.4, T-score -0.6, normal. IDENTIFIED RISK FACTORS: Menopause, height loss, tobacco use (current smoker). HISTORY OF FRACTURE: None listed. MEDICATIONS: Calcium or multivitamin. Vitamin D. Procedure Note John Chavira MD - 08/16/2020 EXAMINATION: BONE DENSITOMETRY CLINICAL INDICATION: Baseline prior to starting aromatase inhibitor. COMPARISON: This is the patient's baseline examination. TECHNIQUE: Using a [employer] DXA System (software version: 13.60) manufactured by [employer], dual-energy x-ray absorptiometrywas performed of the lumbar spine and left hip. The images are of goodtechnical quality. Summary results are attached. FINDINGS: AP SPINE L1-L4: BMD 0.984 g/cm2, Z-score -0.4, T-score -1.6, osteopenia. LEFT FEMUR, NECK: BMD 0.848 g/cm2, Z-score -0.1, T-score -1.4, osteopenia. LEFT FEMUR, TOTAL: BMD 0.934 g/cm2, Z-score 0.4, T-score -0.6, normal. IDENTIFIED RISK FACTORS: Menopause, height loss, tobacco use (current smoker). HISTORY OF FRACTURE: None listed. MEDICATIONS: Calcium or multivitamin. Vitamin D. IMPRESSION: 1. DIAGNOSIS: Osteopenia based on the lowest T-score value of -1.6 inthe lumbar spine applying World Health Organization criteria. 2. 10-YEAR FRACTURE RISK PREDICTION, FRAX: Major osteoporotic fracture (clinical spine, forearm, hip or shoulder) 4.5%. Hip fracture 0.7%. 3. Treatment Recommendations: NOF guidelines recommend consideration for treatment in postmenopausal women and men age 50 and older presenting withthe following: -A hip or vertebral (clinical or morphometric) fracture. -T-score less than or equal to -2.5 at the femoral neck or spine after appropriate evaluation to exclude secondary causes. -Low bone mass at the hip or spine and a 10-year fracture probability byFRAX of greater than or equal to 3% for hip fracture or greater than or equalto 20% for major osteoporotic fracture based on the [place] adapted WHOalgorithm. 4. Other Recommendations: All treatment decisions require clinicaljudgment and consideration of individual patient factors, including patient preferences, comorbidities, previous drug use, risk factors not capturedin the FRAX model (e.g. frailty, falls, vitamin D deficiency, increasedbone turnover, interval significant decline in bone density) and possible underor overestimation of fracture risk by FRAX. Additional medical evaluationfor secondary cause of low bone mineral density may be appropriate. FUTURE SCAN RECOMMENDATION: People with diagnosed cases of osteoporosis or at high risk for fracture should have regular bone mineral density tests. For patients eligiblefor Medicare, routine testing is allowed once every 2 years. The testingfrequency can be increased to one year for patients who have rapidly progressing disease, those who are receiving or discontinuing medical therapy torestore bone mass, or have additional risk factors. Lillian Parker MD IMG DXA ORDERABLES from Last 3 Months or Most Recently Relevant to Health Maintenance Advance Directives * Full Code (Latest Code Status on File) Date Activated Date Inactivated Comments 06/04/2020 10:22 AM 08/28/2021 9:15 AM * Full Code Date Activated Date Inactivated Comments 06/04/2020 6:32 AM 06/04/2020 10:22 AM * Full Code Date Activated Date Inactivated Comments 06/04/2020 6:32 AM 06/04/2020 6:32 AM Care Teams Stock Crane Operator Relationship Specialty Start Date End Date Nina Pulido PA [address] [place] [id number] PCP - General Adult Health - PA/APNP/BACK TENDER PAPER MACHINE/COMMUNITY AFFAIRS MANAGER 06/28/20 Danyelle Caldera RN [address], [place] [id number] Oncology Nurse Navigator 08/18/21
--- OUTSIDE RECORDS SUMMARY | 2024-07-14 16:14 | XMS_ITS | Patient Health Record ---
Author Organization [facility] Address [address] [address] Care Team Providers Care Patient Portal Concierge Name Role Phone KEVIN FAUST Primary Care Provider [phone] Reason For Referral No Information Encounters Encounter Location Date Provider Diagnosis [facility] [address] [facility] [address] [place] [address] 05/24/2024 KEVIN FAUST Plan Of Treatment Next Appt Details Provider Name:KEVIN FAUST , 07/17/2024 02:00:00 PM, [address] [facility] [address], [place], [address], Insurance Providers Payer Name Payer Address Payer Phone Subscriber Number Group Number Insured Name Patient Relationship to Insured Coverage Start Date Coverage End Date Medicare [address] [place]STEN CHOPRA [id number] [phone] [id number] Vijay Robles Self - patient is the insured
--- OUTSIDE RECORDS SUMMARY | 2024-07-14 16:14 | XMS_ITS | Clinical Summary ---
Author Organization [facility] Address [address] [place] [address] Care Team Providers Care Support Clerk Name Role Phone Ev Stanton PA-C Primary Care Provider [phone] Source Comments PLEASE NOTE, if this patient is a minor, it may be UNLAWFUL to discuss sensitive information that is contained in these records (such as FAMILY PLANNING, MENTAL HEALTH or SUBSTANCE ABUSE) with the minor patient's parent or other person without the patient's specific authorization.[facility] Allergies Active Allergy Reactions Criticality Noted Date Comments Aspirin Nausea Only 09/17/2022 Medications omeprazole (PRILOSEC) [address] capsuleIndications :Gastroesophageal reflux disease without esophagitis Take 1 Capsule by mouth daily Take 40 mg by mouth daily 90 Capsule 1 12/24/19 24 Active albuterol HFA (VENTOLIN HFA) 90 mcg/actuation inhalerIndications :Asthma, allergic, mild intermittent, uncomplicated Inhale 2 Puffs into the lungs every 6 (six) hours as needed for shortness of breath or wheezing 18 Each 1 12/24/19 24 Active cholecalciferol (VITAMIN D-3) 125 mcg (5,000 unit) capsuleIndications :Vitamin D deficiency Take 1 Capsule by mouth daily for 180 days 90 Capsule 1 12/24/19 24 Active bisoproloL-hydroch lorothiazide (ZIAC) 5-6.25 mg per tabletIndications: Hypertension, unspecified type Take 1 Tablet by mouth daily 90 Tablet 2 02/29/20 24 Active acetaminophen (TYLENOL) 325 mg tabletIndications: Lumbosacral spondylosis without myelopathy,Acute nonintractable headache, unspecified headache type Take 3 Tablets by mouth every 6 (six) hours as needed for pain Take 975 mg by mouth every 6 (six) hours as needed 90 Tablet 1 04/05/20 24 Active mirtazapine (REMERON) 15 mg tabletIndications: Anxiety,Insomnia, unspecified type,Poor appetite Take 0.5 Tablets by mouth nightly at bedtime 60 Tablet 04/05/20 24 Active methocarbamoL (ROBAXIN) 500 mg tabletIndications: Muscle spasm Take 1 Tablet by mouth 4 (four) times daily 20 Tablet 04/05/20 24 Active multivitamin tabletIndications: Memory changes Take 1 Tablet by mouth once daily 90 Tablet 1 04/05/20 24 Active nicotine, polacrilex, (NICORETTE) 4 mg gumIndications:Tob acco use disorder Use it every 2 hrs or before if need it. No more than 24 gums a day. 110 Each 04/05/20 24 Active anastrozole (ARIMIDEX) 1 mg tabletIndications: Hx of malignant neoplasm of breast Take 1 Tablet by mouth daily Take 1 mg by mouth daily 90 Tablet 06/16/19 25 Active anastrozole (ARIMIDEX) 1 mg tabletIndications: Hx of malignant neoplasm of breast Take 1 Tablet by mouth daily Take 1 mg by mouth daily 90 Tablet 12/24/19 24 025 Discontin ued(Reord er (E-Cancel Not Sent)) Active Problems Problem Noted Date Diagnosed Date Learning difficulty 09/24/2022 Language barrier 09/24/2022 Memory loss, short term 09/24/2022 Mass of skin of abdomen 06/07/2022 Hx of malignant neoplasm of breast 08/29/2021 Tobacco use disorder 07/04/2020 Abnormal ultrasound of liver 02/10/2020 History of adenomatous polyp of colon 02/10/2020 Positive YOAVNY (antinuclear antibody) 12/09/2019 Overview (06/06/2022): Last Assessment & Plan: Has low titer positive YOVANY likely in the setting of positive thyroid antibodies. No clinical evidence of specific connective tissue disease at this time. -We will continue to monitor clinically. -Advised to call if develops new symptoms. Cervical radiculopathy 12/09/2019 Overview (06/06/2022): Last Assessment & Plan: Has a history of C-spine injury status post surgery. Has progressively worsening neck pain associated with neuropathic symptoms more on the left upper extremity. -Would get C-spine x-ray today. -Administered IM depot Medrol 120 mg in clinic today to upper right lateral buttock region. Patient tolerated the procedure without complications. -Tylenol as needed. Consider referral for physical therapy after reviewing C- spine x-ray. Asthma, allergic, mild intermittent, uncomplicat ed 07/19/2019 Epigastric pain determined by examination 2019 Overview (06/06/2022): Added automatically from request for surgery [id number] Family history of colon cancer in mother 020 Overview (06/06/2022): Added automatically from request for surgery [id number] Gastroesophageal reflux disease 07/19/2019 Overview (06/06/2022): Added automatically from request for surgery [id number] Headache 07/19/2019 Skin lesion 07/19/2019 Thrombocytopenia ([facility]) 07/19/2019 Vitamin D deficiency 07/19/2019 History of Helicobacter pylori infection 020 Overview (06/06/2022): Added automatically from request for surgery [id number] Hypertension 07/19/2019 Lumbosacral spondylosis without myelopathy 10/17 Stenosis of cervical spine region 03/28/2015 Encounters Date Type Department Care Team Description 07/13/2024 10:00 AM EST / Visits [facility] [address] [place] [address] Enrike Gamez LCSW 04/23/2024 Interim Notes [facility] [address] [place] [id number] Ev Stanton PA-C Acute nonintractable headache, unspecified headache type (Primary Dx); Memory changes; Family history of dementia from Last 3 Months Social History Tobacco Use Types Packs/Day Years Used Date Smoking Tobacco: Every Day Cigarettes Smokeless Tobacco: Never Tobacco Cessation:Ready to Q uit: Not Asked; Counseling Given: Yes Alcohol Use Standard Drinks/Week Comments Not Currently [...] Orientation Straight 06/07/2022 7: 59 PM PST Last Filed Vital Signs Vital Sign Reading Time Taken Comments Blood Pressure 160/80 04/05/2024 9:04 AM EST Pulse 64 04/05/2024 9:04 AM EST Temperature 36.7 ??C (98 ??F) 04/05/2024 9:04 AM EST Respiratory Rate 16 04/05/2024 9:04 AM EST Oxygen Saturation 97% 04/05/2024 9:04 AM EST Inhaled Oxygen Concentration - - Weight 71.8 kg (158 lb 6.4 oz) 04/05/2024 9:04 A M EST Height 153.5 cm (5' 0.43 ) 01/21/2024 3:06 PM ED T Body Mass Index 30.49 01/21/2024 3:06 PM EDT Plan of Treatment Upcoming Encounters Date Type Department Care Team (Late st Contact Info) Description 08/02/2024 3:45 PM EDT / Visits [address] [phone] Enrike Gamez, ASSISTANT TR[employer] AND FIELD [employer]ACH [address] [place] [address] Health Maintenance Due Date Last Done Comments Imm-DTaP/Tdap/Td (1 - Tdap) 1975 Imm-Pneumococcal 65+ (1 of 2 - PCV) 1975 CT Colonography 2001 FIT/gFOBT 2001 Fecal DNA 2001 Flexible Sigmoidoscopy 2001 Imm-Zoster, Recombinant (1 of 2) 2006 Bone Density Screening 2021 Falls Prevention 2021 [id number] ( season) 2024 Imm-Influenza (#1) 2024 Alcohol and Drug Screen 05/17/2024 01/21/20 24, 12/24/2023, 12/18/2022, Additional history exists Breast Cancer Screening (Mammogram) 01/09/2025 01/10/2024, 02/17/2021 Annual Preventive Care Visit 01/20/2025 01/21/2024 Medicare Annual Wellness Visit 01/20/2025 01/21/2024 Tobacco Cessation Counseling (#1) 04/05/2025 Diabetes Screening 01/20/2027 01/21/2024, 0 09/17/2022, 09/17/2022 Lipid Screening 01/20/2027 01/21/2024, 09/17/2022 Colonoscopy 10/30/2031 10/29/2021 Colorectal Cancer Screening 10/30/2031 Hepatitis C Screening Completed 08/18/2021, 020 Depression Annual Screen Completed 06/19/2024 Procedures Procedure Name Priority Date/Time Associated Diagnosis Comments MEDICATIONS SCANNED DOCUMENT 06/20/2024 3:00 AM EST MRI BRAIN BRAIN STEM W/O CONTRAST MATERIAL Routine 04/15/2024 3:00 AM EST Memory changes Family history of dementia COMPREHENSIVE METABOLIC PANEL Routine 01/21/2024 3:54 PM EDT Annual physical exam Hypertension, unspecified type LIPIDS W RFLX TO DIRECT LDL Routine 01/21/2024 3:54 PM EDT Annual physical exam Hypertension, unspecified type REFERRAL FOR MAMMOGRAM Routine 3:00 AM EDT Screening mammogram, encounter for from Last 3 Months or Most Recently Relevant to Health Maintenance Results * MEDICATIONS SCANNED DOCUMENT (06/20/2024 3:00 AM EST) 06/20/2024 3:00 AM EST [facility] Provider Default SCAN MEDS OTHER ORDERS Fin al Result * MRI BRAIN BRAIN STEM W/O CONTRAST MATERIAL (04/15/2024 3:00 AM EST) 04/15/2024 3:00 AM EST Ev Stanton PA-C IMG MRI Final Result * (ABNORMAL) LIPIDS W RFLX TO DIRECT LDL (01/21/2024 3:54 PM EDT) CHOLESTEROL, TOTAL 177 <200 mg/dL [facility] HDL CHOLESTEROL 52 > OR = 50 mg/dL [facility] TRIGLYCERIDES 176(H) <150 mg/dL [facility] LDL-CHOLESTEROL 98 99 mg/dL (calc) [facility] Comment: Reference range: <100 Desirable range <100 mg/dL for primary prevention; ?? <70 mg/dL for patients with CHD or diabetic patients with > or = 2 CHD risk factors. LDL-C is now calculated using the Ever-Cherelle calculation, which is a validated novel method providing better accuracy than the Friedewald equation in the estimation of LDL-C. Ever FERNANDEZ et al. DONAVAN. 2013;310(19): 7228-7927 (http://education.[employer]/faq/GJA373) CHOL/HDLC RATIO 3.4 <5.0 (calc) [facility] NON-HDL CHOLESTEROL 125 <130 mg/dL (calc) [facility] Comment: For patients with diabetes plus 1 major ASCVD risk factor, treating to a non-HDL-C goal of <100 mg/dL (LDL-C of <70 mg/dL) is considered a therapeutic option. Blood Blood / Unknown 01/21/2024 3 :54 PM EDT 01/21/2024 3:54 PM EDT Narrative [facility] - 01/22/2024 5:42 AM EDT FASTING:NO us Ev Stanton PA-C LAB - BLOOD DRAW Final Resul t [facility] [address] [address], [facility] [address] [place] [address] * COMPREHENSIVE METABOLIC PANEL (01/21/2024 3:54 PM EDT) GLUCOSE 103 65 - 139 mg/dL [facility] Comment: ?Non-fasting reference interval UREA NITROGEN (BUN) 12 7 - 25 mg/dL [facility] CREATININE (blood) 0.69 0.50 - 1.05 mg/dL [facility] EGFR 95 > OR = 60 mL/min/1. 73m2 [facility] BUN/CREATININE RATIO SEE NOTE: [facility] Comment: ?? Not Reported: BUN and Creatinine are within ?? reference range. ? SODIUM 140 135 - 146 mmol/L [facility] POTASSIUM 4.5 3.5 - 5.3 mmol/L [facility] CHLORIDE 105 98 - 110 mmol/L [facility] CARBON DIOXIDE 29 20 - 32 mmol/L [facility] CALCIUM 10.4 8.6 - 10.4 mg/dL [facility] PROTEIN, TOTAL 7.2 6.1 - 8.1 g/dL [facility] ALBUMIN 4.1 3.6 - 5.1 g/dL [facility] GLOBULIN 3.1 1.9 - 3.7 g/dL (calc) [facility] ALBUMIN/GLOBULI N RATIO 1.3 1.0 - 2.5 (calc) [facility] BILIRUBIN, TOTAL 0.5 0.2 - 1.2 mg/dL [facility] ALKALINE PHOSPHATASE 89 37 - 153 U/L [facility] AST 15 10 - 35 U/L [facility] ALT 15 6 - 29 U/L [facility] Blood Blood / Unknown 01/21/2024 3 :54 PM EDT 01/21/2024 3:54 PM EDT Narrative [facility] - 01/22/2024 5:42 AM EDT FASTING:NO Ev Stanton PA-C LAB - BLOOD DRAW Final Resul t [facility] [address] [address], [facility] [address] [place] [address] * REFERRAL FOR MAMMOGRAM (01/10/2024 3:00 AM EDT) 01/10/2024 3:00 AM EDT Ev Stanton PA-C IMG RFL MAMMO Final Result from Last 3 Months or Most Recently Relevant to Health Maintenance [place] Care Teams Support Clerk Relationship Specialty Start Date End Date Ev Stanton PA-C [address] [place] [address] PCP - General Internal Medicine 05/26/22
== END 2024-07-14 14:01 | disposition home or self-care (01) ==
LOC: HO.MAMMO 14:00
PROVIDERS: Visit Provider Internal Medicine Medical Oncology
DX: Z12.31 Encounter for screening mammogram for malignant neoplasm of breast (principal)
CPT/HCPCS: 77063; 77067

== ENCOUNTER → 2024-07-14 14:00 | Outpatient (BNV) | payer MEDICARE, MEDICAID, SELFPAY | PROVIDERS: Visit Provider Internal Medicine | DX: Z12.31 Encounter for screening mammogram for malignant neoplasm of breast (principal) | CPT/HCPCS: 77063; 77067 ==